=== PATIENT | male | born 1940 | race Asian ===

== ENCOUNTER 2019-08-02 15:30 | Inpatient (IN) | payer MEDICARE, OTHER ==
[~2019-08-02] VITALS: Ht 182.9 cm; Wt 72.6 kg
--- NOTE | 2019-08-02 15:39 | NUR ---
ED Nurse Note: BROUGHT IN BY [facility] [address] C/O MECHANICAL FALL AND GENERALIZED WEAKNESS X 1500. PT REPORTS RIGHT KNEE PAIN. PATIENT AO4. NAD. VSS. CHANGED INTO GOWN; ATTACHED TO MONITOR; SAFETY MEASURES MET.
[2019-08-02 15:40] VITALS: BP 152/70
--- NOTE | 2019-08-02 15:45 | NUR ---
ED Nurse Note: IV ACCESS ESTABLISHED. BLOOD, INITIAL LACTIC, BLOOD CULTURES, FLUSWAB COLLECTED; SENT DOWN TO LAB. UNABLE TO COLLECT URINE AT THIS TIME; PT STATES HE WILL PROVIDE WHEN ABLE; REFUSES STRAIGHT CATH COLLECTION. ADMINISTERED IV FLUIDS PRESCRIBED; PT TOLERATING WELL.
--- NOTE | 2019-08-02 16:15 | NUR ---
ED Nurse Note: patient provided urine sample; collected and sent down to lab. upon mentation reassessment, patient presents with episodes of confusion.
[2019-08-02 16:23] LABS: BASOPHILS % (AUTO) 1.3 % (0.0-2.0); EOSINOPHILS % (AUTO) 2.9 % (0.0-3.0); HEMATOCRIT 40.1 % (42.0-52.0); LYMPHOCYTES % (AUTO) 10.5 % (20.0-45.0); MEAN CORPUSCULAR VOLUME 107 FL (80-99); MONOCYTES % (AUTO) 4.7 % (1.0-10.0); NEUTROPHILS % (AUTO) 80.6 % (45.0-75.0); PLATELET COUNT 577 K/UL (150-450); RED BLOOD COUNT 3.76 M/UL (4.70-6.10); RED CELL DISTRIBUTION WIDTH 13.6 % (11.6-14.8)
[2019-08-02 16:38] LABS: ANION GAP 11 mmol/L (5-15); BLOOD UREA NITROGEN 16 mg/dL (7-18); CALCIUM 8.9 MG/DL (8.5-10.1); CARBON DIOXIDE 27 MMOL/L (21-32); CHLORIDE 102 MMOL/L (98-107); CREATININE 1.3 MG/DL (0.55-1.30); POTASSIUM 3.6 MMOL/L (3.5-5.1); SODIUM 140 MMOL/L (136-145)
[2019-08-02 16:52] LABS: ALANINE AMINOTRANSFERASE 18 U/L (12-78); ALBUMIN 3.9 G/DL (3.4-5.0); ALBUMIN/GLOBULIN RATIO 1.1 (1.0-2.7); ALKALINE PHOSPHATASE 118 U/L (46-116); ASPARTATE AMINO TRANSFERASE 19 U/L (15-37); BILIRUBIN,TOTAL 0.5 MG/DL (0.2-1.0); CKMB 0.7 NG/ML (0.0-3.6); CREATINE KINASE 95 U/L (26-308)
[2019-08-02 17:00] LABS: APPEARANCE,URINE CLEAR; BILIRUBIN, URINE NEGATIVE (NEGATIVE); GLUCOSE, URINE (UA) NEGATIVE (NEGATIVE); KETONES,URINE 1+ (NEGATIVE); LEUKOCYTE ESTERASE ,URINE 1+ (NEGATIVE); NITRITE,URINE NEGATIVE (NEGATIVE); PH,URINE 7 (4.5-8.0); PROTEIN,URINE 1+ (NEGATIVE); UROBILINOGEN,URINE 1 MG/DL (0.0-1.0)
[2019-08-02 17:01] LABS: COLOR,URINE YELLOW
--- NOTE | 2019-08-02 17:05 | Emergency Room Report ---
History of Present Illness General Chief Complaint: Multiple Trauma/Fall Source: Patient, EMS Present Illness HPI Patient presents with reports of general weakness Patient himself is a very poor historian the ambulance reports the patient was found sitting on the street Patient cannot provide appropriate input reports that he was feeling weak However is not able to explain how he was brought here or why he is here Denies any chest pain denies any vomiting or diarrhea He does complain of general weakness denies any fevers or cough Allergies: Coded Allergies: No Known Allergies (Unverified , 08/02/19) COVID-19 Screening Contact w/high risk pt: No Recent Travel to affected area: No Experienced COVID-19 symptoms?: No Patient History Limited by: medical condition Past Medical History: see triage record Reviewed Nursing Documentation: PMH: Agreed; PSxH: Agreed Nursing Documentation-PMH Past Medical History: No Stated History Review of Systems All Other Systems: limited - Other than the ones mentioned in the history of present illness all others are reviewed however they do stay limited due to the patient's mental status Physical Exam Vital Signs Date Time Temp Pulse Resp B/P (MAP) Pulse Ox O2 Delivery O2 Flow Rate FiO2 08/02/19 15:35 98.6 97 22 152/70 (97) 94 Room Air Sp02 EP Interpretation: reviewed, normal General Appearance: no apparent distress Head: normocephalic, atraumatic Eyes: bilateral eye PERRL, bilateral eye EOMI ENT: hearing grossly normal, EOM grossly intact Neck: supple Respiratory: lungs clear, no respiratory distress, no retraction Cardiovascular #1: regular rate, rhythm Gastrointestinal: non tender, soft Musculoskeletal: other - Patient has equal choirmaster in both upper extremities no obvious focal weakness Neurologic: other - Underlying confusion however is able to speak clearly denies any pain, Skin: no rash Lymphatic: no adenopathy Medical Decision Making Diagnostic Impression: Primary Impression: Weakness Additional Impression: Encephalopathy ER Course Patient is a fairly complex patient with multiple differential to consideration including but not limited to cardiac cardiopulmonary and vascular emergencies Other neurological differentials also entertained Patient CT head does not show any acute process blood work is appropriate patient requires further inpatient care and evaluation Labs Test 08/02/19 15:45 08/02/19 16:15 White Blood Count 13.0 K/UL (4.8-10.8) Red Blood Count 3.76 M/UL (4.70-6.10) Hemoglobin 13.0 G/DL (14.2-18.0) Hematocrit 40.1 % (42.0-52.0) Mean Corpuscular Volume 107 FL (80-99) Mean Corpuscular Hemoglobin 34.7 PG (27.0-31.0) Mean Corpuscular Hemoglobin Concent 32.5 G/DL (32.0-36.0) Red Cell Distribution Width 13.6 % (11.6-14.8) Platelet Count 577 K/UL (150-450) Mean Platelet Volume 6.9 FL (6.5-10.1) Neutrophils (%) (Auto) 80.6 % (45.0-75.0) Lymphocytes (%) (Auto) 10.5 % (20.0-45.0) Monocytes (%) (Auto) 4.7 % (1.0-10.0) Eosinophils (%) (Auto) 2.9 % (0.0-3.0) Basophils (%) (Auto) 1.3 % (0.0-2.0) Sodium Level 140 MMOL/L (136-145) Potassium Level 3.6 MMOL/L (3.5-5.1) Chloride Level 102 MMOL/L (98-107) Carbon Dioxide Level 27 MMOL/L (21-32) Anion Gap 11 mmol/L (5-15) Blood Urea Nitrogen 16 mg/dL (7-18) Creatinine 1.3 MG/DL (0.55-1.30) Estimat Glomerular Filtration Rate 53.4 mL/min (>60) Glucose Level 137 MG/DL (74-106) Lactic Acid Level 1.80 mmol/L (0.4-2.0) Calcium Level 8.9 MG/DL (8.5-10.1) Total Bilirubin 0.5 MG/DL (0.2-1.0) Aspartate Amino Transf (AST/SGOT) 19 U/L (15-37) Alanine Aminotransferase (ALT/SGPT) 18 U/L (12-78) Alkaline Phosphatase 118 U/L (46-116) Total Creatine Kinase 95 U/L (26-308) Creatine Kinase MB 0.7 NG/ML (0.0-3.6) Creatine Kinase MB Relative Index 0.7 Troponin I 0.000 ng/mL (0.000-0.056) Pro-B-Type Natriuretic Peptide 660 pg/mL (0-125) Total Protein 7.4 G/DL (6.4-8.2) Albumin 3.9 G/DL (3.4-5.0) Globulin 3.5 g/dL Albumin/Globulin Ratio 1.1 (1.0-2.7) Lipase 236 U/L (73-393) Urine Color Yellow Urine Appearance Clear Urine pH 7 (4.5-8.0) Urine Specific [place] 1.015 (1.005-1.035) Urine Protein 1+ (NEGATIVE) Urine Glucose (UA) Negative (NEGATIVE) Urine Ketones 1+ (NEGATIVE) Urine Blood Negative (NEGATIVE) Urine Nitrite Negative (NEGATIVE) Urine Bilirubin Negative (NEGATIVE) Urine Urobilinogen 1 MG/DL (0.0-1.0) Urine Leukocyte Esterase 1+ (NEGATIVE) Urine RBC 0-2 /HPF (0 - 0) Urine WBC 2-4 /HPF (0 - 0) Urine Squamous Epithelial Cells None /LPF (NONE/OCC) Urine Bacteria Few /HPF (NONE) Rhythm Strip Diag. Results EP Interpretation: yes Rate: 77 Rhythm: NSR, no PVC's, no ectopy Chest X-Ray Diagnostic Results Chest X-Ray Diagnostic Results : Chest X-Ray Ordered: Yes # of Views/Limited/Complete: 1 View Indication: Chest Pain EP Interpretation: Yes Interpretation: no consolidation, no effusion, no pneumothorax Impression: No acute disease Electronically Signed by: Bill Palomares DO CT/MRI/US Diagnostic Results CT/MRI/US Diagnostic Results : Impression CT head IMPRESSION: 1. No acute intracranial abnormality. 2. Chronic senescent findings above. 3. Partially empty sella turcica, which is a common and typically incidental finding. This can also be associated with hypopituitarism. 4. Otherwise unremarkable. Last Vital Signs Date Time Temp Pulse Resp B/P (MAP) Pulse Ox O2 Delivery O2 Flow Rate FiO2 08/02/19 15:40 98.6 97 22 152/70 94 Room Air Status: improved Disposition: ADMITTED INPATIENT Condition: Serious Scripts No Active Prescriptions or Reported Meds Bill Palomares DO Aug 02, 2019 17:04
--- NOTE | 2019-08-02 17:12 | NUR ---
ED Nurse Note: PT taken to CT
--- NOTE | 2019-08-02 17:25 | NUR ---
ED Nurse Note: back from CT
[2019-08-02 17:30] VITALS: BP 145/91
--- NOTE | 2019-08-02 17:41 | Diagnostic Imaging Report ---
EXAM: XR Chest, 1 View CLINICAL HISTORY: COUGH TECHNIQUE: Frontal view of the chest. COMPARISON: No relevant prior studies available. FINDINGS: Lungs: Unremarkable. No consolidation. Pleural space: Unremarkable. No pneumothorax. Heart: Unremarkable. No cardiomegaly. Mediastinum: Unremarkable. Bones/joints: Unremarkable. IMPRESSION: 1. No acute cardiopulmonary disease. 2. If there is continued concern recommend PA and lateral chest radiographs.
--- NOTE | 2019-08-02 17:41 | Diagnostic Imaging Report ---
EXAM: CT Head Without Intravenous Contrast CLINICAL HISTORY: AMS TECHNIQUE: Axial computed tomography images of the head/brain without intravenous contrast. CTDI is 53 mGy and DLP is 1056 mGy-cm. One or more of the following dose reduction techniques were used: automated exposure control, adjustment of the mA and/or kV according to patient size, use of iterative reconstruction technique. COMPARISON: No relevant prior studies available. FINDINGS: Brain: Parenchymal volume loss. Nonspecific white matter hypoattenuation likely secondary to chronic microvascular ischemia. Cerebrovascular ASVD. No hemorrhage. Ventricles: Unremarkable. No ventriculomegaly. Bones/joints: Unremarkable. No acute fracture. Soft tissues: Unremarkable. Sinuses: Unremarkable as visualized. No acute sinusitis. Mastoid air cells: Unremarkable as visualized. No mastoid effusion. Sella: Partially empty sella turcica, which is a common and typically incidental finding. This can also be associated with hypopituitarism. IMPRESSION: 1. No acute intracranial abnormality. 2. Chronic senescent findings above. 3. Partially empty sella turcica, which is a common and typically incidental finding. This can also be associated with hypopituitarism. 4. Otherwise unremarkable.
--- NOTE | 2019-08-02 17:49 | NUR ---
ED Nurse Note: Report given to KIA Mora at med/surg floor
--- NOTE | 2019-08-02 18:05 | NUR ---
NURSE NOTES: Received patient from ER via gurney. patient is alert and oriented x3 but does not remember patient's medical history or names of medications. Patient stated that " I don't have no medical history." Patient's primary doctor is Owen Doss. Will follow up on Sunday. Patient stated that he has no family. Skin assessment done, no skin issue, patient is ambulatory, no pain, swelling or bruises. Orientation given about the units, fall precautions and call light use. Bed is in lowest position and locked. Call light and personnel items within reach. Patient has cigarette (4pks). Explained to the patient that [facility] is non-smoking building and no smoking privilege. Dr. Dickson was paged.
--- NOTE | 2019-08-02 19:20 | NUR ---
NURSE NOTES: Received some admission order from Dr. Dickson. Inform Dr. dickson that patient does not remember home meds.
--- NOTE | 2019-08-02 19:35 | NUR ---
HAND-OFF: Report given to Martina and endorsed plan of care.
--- NOTE | 2019-08-02 19:40 | NUR ---
NURSE NOTES: Received report from Magda garg RN. Patient is in bed, awake and alert x3. Occitan speaking. On room air with no signs of distress or SOB. Right AC IV intact. Unlabeled medications brought with patient but patient doesn't know what they are. Sent to pharmacy. Patient is on fall precautions. Bed locked and on lowest position. 3 side rails up. Bed alarm on. Call light in reach. Will continue to monitor. Addendum: 08/02/19 at 2013 by PIERO RHODES RN Wrong patient Addendum: 08/02/19 at 2014 by PIERO RHODES RN Correct patient*
[2019-08-02 20:00] VITALS: BP 162/83
[2019-08-03] VITALS: BP 155/80
[2019-08-03 04:00] VITALS: BP 157/79
[2019-08-03 07:25] LABS: ALANINE AMINOTRANSFERASE 14 U/L (12-78); ALBUMIN 3.5 G/DL (3.4-5.0); ALBUMIN/GLOBULIN RATIO 1.1 (1.0-2.7); ALKALINE PHOSPHATASE 110 U/L (46-116); ANION GAP 8 mmol/L (5-15); ASPARTATE AMINO TRANSFERASE 19 U/L (15-37); BILIRUBIN,TOTAL 0.9 MG/DL (0.2-1.0); BLOOD UREA NITROGEN 12 mg/dL (7-18); CALCIUM 8.8 MG/DL (8.5-10.1); CARBON DIOXIDE 28 MMOL/L (21-32); CHLORIDE 103 MMOL/L (98-107); POTASSIUM 3.7 MMOL/L (3.5-5.1); SODIUM 138 MMOL/L (136-145)
[2019-08-03 07:28] LABS: BASOPHILS % (AUTO) 0.9 % (0.0-2.0); EOSINOPHILS % (AUTO) 1.9 % (0.0-3.0); HEMATOCRIT 37.2 % (42.0-52.0); HEMOGLOBIN 13.1 G/DL (14.2-18.0); LYMPHOCYTES % (AUTO) 9.1 % (20.0-45.0); MEAN CORPUSCULAR VOLUME 100 FL (80-99); MONOCYTES % (AUTO) 4.2 % (1.0-10.0); NEUTROPHILS % (AUTO) 83.9 % (45.0-75.0); PLATELET COUNT 527 K/UL (150-450); RED BLOOD COUNT 3.71 M/UL (4.70-6.10); RED CELL DISTRIBUTION WIDTH 12.7 % (11.6-14.8)
--- NOTE | 2019-08-03 07:28 | NUR ---
HAND-OFF: Report given to Magda garg RN.
--- NOTE | 2019-08-03 07:30 | NUR ---
NURSE NOTES: Received patient in bed, awake, alert and oriented x3. Not in respiratory/cardiac distress noted. Denies any pain or discomfort. Patient is a risk of fall s/p fall prior to admission and unsteady gait. Bed is in lowest position and locked. Patient forgets to call nurse. Call light and personnel items within reach, yellow socks and gown on, reminded patient to call nurses if needed. will continue plan of care.
[2019-08-03 08:00] VITALS: BP 143/77
[2019-08-03 08:39] VITALS: BP 143/77
--- NOTE | 2019-08-03 08:42 | NUR ---
NURSE NOTES: patient's blood pressure is 143/77, RN offered norvasc but patient refused to take medicine stating " My blood pressure is not high, I never took blood pressure medicine,so I don't need that medicine." RN re-educated about HTN and medicine. Patient understood but refused x3. RN explained the risks and benefits. Patient is asymptomatic, denies headache, chest pain or blurred vision. Will continue to monitor.
--- NOTE | 2019-08-03 09:30 | NUR ---
NURSE NOTES: Patient wants to be discharged,patient said " If I don't see the doctor until 10:00am, I will go home, I have some stuff to do [address] Dickson and explained to the patient doctor's rounding schedule. Will follow up.
--- NOTE | 2019-08-03 10:20 | NUR ---
NURSE NOTES: RN received call from and RN explained the situation, RN received order from Dr. Dickson to discharge patient if clear by Dr. Chi Aceves ID doctor. RN explained to the patient and called and spoke to Dr. Aceves. Dr. Aceves said he could come OM in the afternoon, no specific time. RN informed patient and encouraged patient to wait for the doctor but patient refused and got anxious stating " I am not going to wait for the doctor, I feel fine, there is no reason for me to be here." He wanted to leave facility AMA. Patient is alert and oriented x4. RN spoke to the patient in Portuguese. No changes in LOC. Patient totally understood what AMA is and signed the paper. Patient left unit AMA.Prior to AMA,patient's condition was stable, no cough, fever or SOB, No change in LOC, denied pain or discomfort, able to walk by himself with steady gait. All belongings given to the patient, patient signed on belonging paper. Per patient, no family but home address was given to RN [id number], [place]. IV and ID were removed. No s/s of infection on IV removal site. charge nurse, household refrigeration mechanic and Dr. Dickson were informed of AMA.
--- NOTE | 2019-08-03 23:59 | History and Physical Report ---
DATE OF ADMISSION: 08/02/2019 Please let this serve as an H and P since the patient left against medical advice shortly after he was admitted. The patient did not want to be waited to be seen by me or any other internet consultant that was called and was adamant, wanted to go AMA, and he said that "there is nothing wrong with me." The patient was originally being admitted for weakness, rule out encephalopathy, and weakness. I had consulted Dr. Chi Aceves and Dr. Miller to see the patient, but as I mentioned the patient left shortly after being admitted, was adamant, signed against medical advice, did not want to wait to be cleared by the Infectious Disease, Dr. Chi Aceves before going home. I gave the order to discharge, but had to be cleared by Dr. Chi Aceves, but as mentioned he did not want to wait, so let this serve as an H and P since the patient left before I could examine the patient and left against medical advice less than 24 hours from the time that the patient was admitted. Bill Dickson M.D. DR: JEFF JOB#: [id number] CC:
--- NOTE | 2019-08-04 11:10 | Discharge Summary ---
Discharge Summary Discharge Summary _ DATE OF ADMISSION: 08/02/2019 DATE OF DISCHARGE: 08/03/2019 Patient left AGAINST MEDICAL ADVICE REASON FOR ADMISSION: 79 years old male with unknown past medical history, was brought by ambulance. Patient was found sitting on the street. Patient by himself was a poor historian and unable to provide much of the information. He reported feeling weak. He denied chest pain and shortness of breath. He denied vomiting or diarrhea. No fever or chills. No cough or congestion. Upon evaluation vital signs were stable. Laboratory work-up revealed mild leukocytosis WBC 13, hemoglobin 13, hematocrit 40.1, platelet count 577. Stable electrolytes. BUN 16, creatinine 1.3. Glucose 137. Lactic acid 1.8. Stable LFT. Troponin negative. pro BNP 660. EKG revealed sinus rhythm, no acute ischemic changes. Albumin 3.9. Urinalysis revealed + leukocyte esterase , no pyuria no bacteria. CT of the head revealed no acute intracranial pathology. Chronic senescent findings noted. Chest x-ray revealed no acute cardiopulmonary pathology. In emergency department patient started on IV fluids and admitted for further management. HOSPITAL COURSE: Patient admitted to medical surgical floor and started on IV fluids. Supplemental oxygen was on board as needed. Pulse oximetry was stable on room air. Influenza swab screen was negative. Blood culture at the time of this dictation came back preliminary negative. Blood pressure was managed with calcium channel daniel, and remained stable. ID specialist and neurologist consulted, Patient did not want to wait for the specialists and decided to leave AGAINST MEDICAL ADVICE. The risks and consequences of signing AGAINST MEDICAL ADVICE were discussed with patient in detail. Patient verbalized understanding, nevertheless signed AMA form and left. FINAL DIAGNOSES: Weakness Encephalopathy I have been assigned to dictate discharge summary for this account. I was not involved in the patient's management. Lissa Mathew NP Aug 04, 2019 11:10
== END 2019-08-03 10:30 | disposition left against medical advice (07) | DRG 72 ==
LOC: EDBD 15:30 → EMR 17:06 → EDBEDREQ 17:43 → 4E 18:00
DX: G93.40 Encephalopathy, unspecified (principal); R53.1 Weakness; D72.829 Elevated white blood cell count, unspecified
CPT/HCPCS: 36415; 70450; 71045; 80053; 81003; 82550; 82553; 83605; 83690; 83880; 84484; 85025; 86710; 87040; 93005; 96360; 99285